=== PATIENT | female | born 1980 | race Caucasian/White ===

== ENCOUNTER 2016-12-29 09:35 | Emergency (ER) | payer OTHER ==
[~2016-12-29] VITALS: Ht 167.6 cm; Wt 75.5 kg
[~2016-12-29 09:35] MED LIST: ACET325T33 PO; ALPR0.5T PO; CIPR500T4 PO; FAMO-96 PO; GLYB5TAB3 PO; HYDR-3498 PO; LANT3I SC; LEVO75TA5 PO; Lisinopril PO; ONDA4TAB8 PO
[2016-12-29 09:47] VITALS: Ht 167.6 cm; Wt 75.5 kg
[2016-12-29 11:40] LABS: URINE BLOOD (Dip) POC Negative (NEGATIVE)
--- NOTE | 2016-12-29 11:47 | ERD ---
ER Documentation Chief Complaint Chief Complaint LOWER ABD PAIN AITH N/V/D HPI 36-year-old female, presents to the emergency department complaining of 4 days with diarrhea, which is described as liquid greenish, approximately 5 episodes per day. Associated with nausea and vomiting 2 yesterday. The patient refers subjective fever at home. No recent traveling, no suspicious fluid. The patient is also complaining of a lump in her vaginal area for the last 6 weeks, nonpainful, mobile. ROS SYSTEMIC symptoms: No fever, no chills, no night sweats EYE symptoms: No eyesight problems. OTOLARYNGEAL symptoms: No hearing loss. CARDIOVASCULAR symptoms: No chest pain or discomfort, no palpitations. PULMONARY symptoms: No dyspnea, no cough, no wheezing. GASTROINTESTINAL symptoms: No abdominal pain, (+) nausea, (+) vomiting SKIN no rashes MUSCULOSKELETAL symptoms: No arthralgias, no muscle aches. NEUROLOGY symptoms: No headache, no confusion, no syncope, no numbness or tingling. All systems reviewed and are negative except as per history of present illness. Medications Home Meds Active Scripts Ranitidine Hcl* (Zantac*) 150 Mg Tablet, 150 MG PO BID Y for abdominal pain, # 30 TAB Prov:GERARD OLVERA MD 12/29/16 Ciprofloxacin Hcl* (Ciprofloxacin Hcl*) 500 Mg Tablet, 250 MG PO BID for 3 Days , #6 TAB Prov:GERARD OLVERA MD 12/29/16 Famotidine* (Pepcid*) 20 Mg Tablet, 20 MG PO BID for 4 Days, TAB Prov:MARCEL MOON PA-C 01/23/15 Acetaminophen* (Tylenol*) 325 Mg Tablet, 2 TAB PO Q8 Y for PAIN AND OR ELEVATED TEMP, #20 TAB Prov:MARCEL MOON PA-C 01/23/15 Hydrocodone Bit-Acetaminophen* ([place]*) 5-325 Mg Tab, 1 TAB PO Q6 Y for PAIN, # 14 TAB Prov:JOSÉ MIGUEL GARCIA DO 12/08/14 Ondansetron Hcl* (Zofran*) 4 Mg Tablet, 4 MG PO Q8H Y for NAUSEA AND/OR VOMITING , #10 TAB Prov:JOSÉ MIGUEL GARCIA DO 10/4/15 Ciprofloxacin Hcl* (Ciprofloxacin Hcl*) 500 Mg Tablet, 500 MG PO BID for 10 Days , TAB Prov:JOSÉ MIGUEL GARCIA DO 12/08/14 [Lisinopril] 5 MG TAB No Conflict Check, 5 MG PO DAILY for 30 Days, TAB Do not Take if your systolic Blood pressure is less than 110 Prov:LINDA HARDEN 09/13/14 Reported Medications Alprazolam* (Xanax*) 0.5 Mg Tab, 0.5 MG PO DAILY NEEDED, TAB 03/18/14 Insulin Glargine* (Lantus*) 100 Unit/Ml Soln, 45 UNIT SC QPM, EA 03/18/14 Levothyroxine Sodium* (Levothyroxine Sodium*) 75 Mcg Tablet, 75 MCG PO DAILY, TAB 03/18/14 Glyburide* (Glyburide*) 5 Mg Tablet, 5 MG PO BID, TAB 03/18/14 Allergies Allergies: Coded Allergies: No Known Allergy (Unverified , 12/08/14) PMhx/Soc History of Surgery: Yes ( x2, hysterectomy) Anesthesia Reaction: No Hx Neurological Disorder: No Hx Respiratory Disorders: No Hx Cardiac Disorders: Yes (HTN) Hx Psychiatric Problems: No Hx Miscellaneous Medical Probl: Yes (diabetes, HTN, THYROID) Hx Alcohol Use: Yes (social) Hx Substance Use: Yes (MJ) Hx Tobacco Use: No Smoking Status: Never smoker Physical Exam Vitals Vital Signs Date Time Temp Pulse Resp B/P Pulse Ox O2 Delivery O2 Flow Rate FiO2 12/29/16 09:47 98.2 97 16 137/82 99 Physical Exam Patient alert oriented, well-hydrated in no distress. Neck: Full range of motion..~ No meningismus. Resp: Clear to auscultation bilaterally Cardio: Regular rate and rhythm, no murmurs Abd: Soft, non tender, non distended. Normal bowel sounds G.U: 1cm pedunculated hyperkeratotic lesion on right labia Results 24 hrs Laboratory Tests Test 12/29/16 11:38 Bedside Urine pH (LAB) 6.0 Bedside Urine Protein (LAB) 1+ Bedside Urine Glucose (UA) 0.50% Bedside Urine Ketones (LAB) Negative Bedside Urine Blood Negative Bedside Urine Nitrite (LAB) Negative Bedside Urine Leukocyte Esterase (L Negative Procedures/MDM 36-year-old female, presents with 5 days of diarrhea. Physical examination unremarkable, no suspicion for acute abdomen. Differential diagnosis includes gastroenteritis, viral/ bacterial, colitis, thyroid disease. The patient refers similar symptoms in the past and stated that the medication that worked for her was antibiotics therefore the patient is requesting a prescription for oral antibiotics. The patient was advised to follow-up with her primary doctor in 2-4 days and return to the hospital as needed for worsening or persistent pain Departure Diagnosis: Primary Impression: Gastroenteritis Additional Impression: Warts Condition: Stable Patient Instructions: Gastroenteritis, Bacterial (Child) (Adult) GERARD OLVERA MD Dec 29, 2016 11:47
[2016-12-29] MEDS ORDERED: CIPR500T4 PO (11:49)
[2016-12-29] MEDS ORDERED: RANI150T9 PO (11:49)
== END 2016-12-29 12:06 | disposition home or self-care (01) ==
LOC: FTE 09:35
DX: K52.9 Noninfective gastroenteritis and colitis, unspecified (principal); B07.9 Viral wart, unspecified; I10 Essential (primary) hypertension; E11.9 Type 2 diabetes mellitus without complications; Z79.4 Long term (current) use of insulin; Z79.84 Long term (current) use of oral hypoglycemic drugs
CPT/HCPCS: 81003; Z7502; 99283

== ENCOUNTER 2017-03-11 11:29 | Emergency (ER) | END 2017-03-11 17:25 | disposition home or self-care (01) ==

== ENCOUNTER 2017-09-21 12:35 | Emergency (ER) | END 2017-09-21 15:26 | disposition home or self-care (01) ==

== ENCOUNTER 2017-10-07 15:02 | Emergency (ER) | END 2017-10-07 18:34 | disposition home or self-care (01) ==

== ENCOUNTER 2017-11-09 20:20 | Emergency (ER) | END 2017-11-10 00:07 | disposition home or self-care (01) ==

== ENCOUNTER 2017-11-28 08:44 | Emergency (ER) | END 2017-11-28 12:09 | disposition home or self-care (01) ==

== ENCOUNTER 2017-12-22 08:11 | Emergency (ER) | END 2017-12-22 10:35 | disposition home or self-care (01) ==

== ENCOUNTER 2018-01-16 12:43 | Emergency (ER) | END 2018-01-16 15:15 | disposition home or self-care (01) ==

== ENCOUNTER 2018-05-02 11:18 | Emergency (ER) | payer OTHER ==
[~2018-05-02] VITALS: Ht 167.6 cm; Wt 75.9 kg
[~2018-05-02 11:18] MED LIST changes: -ACET325T33 PO; +ALPR2TAB PO; +BUTA1CAP41 PO; -CIPR500T4 PO; +DOCU-144 PO; +ESCI20TA PO; -FAMO-96 PO; -HYDR-3498 PO; +HYDR-3980 PO; +IBUP-1542 PO; +IBUP800T48 PO; -LANT3I SC; +LEVO50TA7 PO; -LEVO75TA5 PO; +LOSA50TA14 PO; -Lisinopril PO; +NAPR-985 PO; +ONDA4TAB14 PO; -ONDA4TAB8 PO
[2018-05-02 11:47] VITALS: PULSE 81; Ht 167.6 cm; Wt 75.9 kg
[2018-05-02] MEDS ORDERED: KETOROLAC 30 MG INJ IV STA (13:04)
[2018-05-02] MEDS ORDERED: SOD CHLORIDE 0.9% 500 ML IV STA (13:04)
--- NOTE | 2018-05-02 13:34 | ERD ---
ER Documentation Chief Complaint Chief Complaint painful urination x 4 days. pt noticed bloody urine starting yesterday HPI This is a 38-year-old female with a history of hypertension and diabetes mellitus who presents to ED with complaints of lower abdominal/pelvic pain that has been constant for the past 4 days. Patient rates pain at a 7 out of 10 and states that the pain is been worsening over the past 2 days. Patient admits to seeing blood in urine and states that the pain is radiating to bilateral low back, right greater than left. Patient also admits to fevers and nausea. Denies dysuria, increased frequency of urination, vomiting, hematemesis, hemoptysis, diarrhea, constipation, melena, hematochezia, vaginal pain, vaginal discharge and all other symptoms. no hx of kidney stones ROS All systems reviewed and are negative except as per history of present illness. Medications Home Meds Active Scripts Ibuprofen* (Motrin*) 600 Mg Tab, 600 MG PO Q6, #30 TAB Prov:CHRIS JARRETT PA-C 01/16/18 Docusate Sodium* (Colace*) 100 Mg Capsule, 100 MG PO TID, #30 CAP Prov:CHRIS JARRETT PA-C 01/16/18 Ibuprofen* (Motrin*) 600 Mg Tab, 600 MG PO Q6H PRN for PAIN AND OR ELEVATED TEMP, #30 TAB Prov:YANG CUELLAR NP 12/22/17 Naproxen* (Naprosyn*) 500 Mg Tablet, 500 MG PO BID PRN for PAIN AND/OR INFLAMM ATION, #30 TAB Prov:SHABBIR RESENDIZ PA-C 11/28/17 Ondansetron (Ondansetron Odt) 4 Mg Tab.rapdis, 4 MG PO Q6H PRN for NAUSEA AND/OR VOMITING, #10 TAB Prov:SHABBIR RESENDIZ PA-C 11/28/17 Ibuprofen* (Motrin*) 800 Mg Tab, 800 MG PO Q6H PRN for PAIN AND OR ELEVATED TEMP, #30 TAB Prov:AYDEE SANCHEZ DO 11/09/17 Hydrocodone/Acetaminophen ([place] 10-325 Tablet) 1 Each Tablet, 1 TAB PO Q6H PRN for PAIN, #7 TAB Prov:AYDEE SANCHEZ DO 11/09/17 Alprazolam* (Xanax*) 0.5 Mg Tab, 0.5 MG PO Q8H PRN for ANXIETY, #20 TAB Prov:AYDEE SANCHEZ DO 11/09/17 Reported Medications Kapntlewsn-Pzbhbneoasfme-Azdgssfw* (Zebutal*) 50-325-40 Mg Capsule, 1 CAP PO BID PRN for NEEDED, CAP 11/09/17 Escitalopram Oxalate* (Lexapro*) 20 Mg Tablet, 20 MG PO DAILY, #30 TAB 11/09/17 Losartan Potassium* (Losartan Potassium*) 50 Mg Tablet, 50 MG PO BID, TAB 11/09/17 Levothyroxine Sodium* (Levothyroxine Sodium*) 50 Mcg Tablet, 50 MCG PO BEFORE BREAKFAST, #30 TAB 11/09/17 Glyburide* (Glyburide*) 5 Mg Tablet, 5 MG PO BID, #60 TAB 11/09/17 Alprazolam* (Xanax*) 2 Mg Tablet, 2 MG PO Q12H PRN for ANXIETY, TAB 11/09/17 Allergies Allergies: Coded Allergies: No Known Allergy (Unverified , 05/02/18) PMhx/Soc History of Surgery: Yes (HYSTERECTOMY,TUBAL LIGATION,C SECTION X 2) Anesthesia Reaction: No Hx Neurological Disorder: Yes Hx Respiratory Disorders: No Hx Cardiac Disorders: Yes (HTN) Hx Psychiatric Problems: No Hx Miscellaneous Medical Probl: Yes (DM,hypothroidism) Hx Alcohol Use: Yes (SOCIALLY) Hx Substance Use: No Hx Tobacco Use: No Smoking Status: Never smoker FmHx Family History: No diabetes Physical Exam Vitals Vital Signs Date Temp Pulse Resp B/P (MAP) Pulse Ox O2 O2 Flow FiO2 Time Delivery Rate 05/02/18 99.0 81 18 162/86 99 11:47 (111) Physical Exam Physical Exam Vitals signs: Reviewed by me. General: Well developed, well nourished, in mild distress. Patient is awake and alert. Head: Normocephalic, atraumatic. Eyes: Normal conjunctiva, Pupils PERRLA, EOM intact grossly ENT: Pharynx is clear, Moist mucous membranes, external ears, nose and mouth normal Neck: Supple, no masses, lymphadenopathy or JVD Respiratory: Clear to auscultation bilaterally with no wheezing, rhonchi, rales, no distress Cardiovascular: RRR, no murmurs, rubs, or gallops Abdominal: Soft, nondistended, no peritoneal signs, no rigidity, no surgical abdomen, bowel sounds present all 4 quadrants, mild tenderness palpation in suprapubic region and right lower quadrant, Morgan sign negative, no rebound tenderness, nontender to palpation in all the quadrants : Deferred Back: No midline tenderness. right cva tenderness presents Neurologic: Alert and oriented, moving all extremities, normal speech, no focal weakness, no cerebellar signs. Normal mentation Skin: warm and dry, No rash Psych: Normal mood Result Diagram: 05/02/18 1329 05/02/18 1329 Results 24 hrs Laboratory Tests Test 05/02/18 13:22 05/02/18 13:29 05/02/18 13:36 Urine Color YELLOW Urine Clarity CLOUDY Urine pH 6.0 Urine Specific [place] 1.029 Urine Ketones NEGATIVE mg/dL Urine Nitrite NEGATIVE mg/dL Urine Bilirubin NEGATIVE mg/dL Urine Urobilinogen NEGATIVE mg/dL Urine Leukocyte Esterase 3+ Horacio/ul Urine Microscopic RBC 15 /HPF Urine Microscopic WBC 38 /HPF Urine Squamous Epithelial Cells MODERATE /HPF Urine Hemoglobin NEGATIVE mg/dL Urine Glucose 3+ mg/dL Urine Total Protein NEGATIVE mg/dl White Blood Count 7.2 10^3/ul Red Blood Count 4.80 10^6/ul Hemoglobin 13.8 g/dl Hematocrit 38.7 % Mean Corpuscular Volume 80.6 fl Mean Corpuscular Hemoglobin 28.8 pg Mean Corpuscular 35.7 g/dl Hemoglobin Concent Red Cell Distribution Width 11.9 % Platelet Count 258 10^3/UL Mean Platelet Volume 9.9 fl Immature Granulocytes % 0.300 % Neutrophils % 58.4 % Lymphocytes % 35.0 % Monocytes % 4.9 % Eosinophils % 1.1 % Basophils % 0.3 % Nucleated Red Blood Cells % 0.0 /100WBC Immature Granulocytes # 0.020 10^3/ul Neutrophils # 4.2 10^3/ul Lymphocytes # 2.5 10^3/ul Monocytes # 0.4 10^3/ul Eosinophils # 0.1 10^3/ul Basophils # 0.0 10^3/ul Nucleated Red Blood Cells # 0.0 10^3/ul Sodium Level 138 mmol/L Potassium Level 3.9 mmol/L Chloride Level 104 mmol/L Carbon Dioxide Level 24 mmol/L Anion Gap 10 Blood Urea Nitrogen 9 mg/dl Creatinine 0.44 mg/dl Est Glomerular Filtrat > 60 mL/min Rate mL/min Glucose Level 259 mg/dl Calcium Level 9.4 mg/dl Total Bilirubin 0.7 mg/dl Direct Bilirubin 0.00 mg/dl Indirect Bilirubin 0.7 mg/dl Aspartate Amino 18 IU/L Transf (AST/SGOT) Alanine 7 IU/L Aminotransferase (ALT/SGPT) Alkaline Phosphatase 87 IU/L Total Protein 7.5 g/dl Albumin 4.2 g/dl Globulin 3.30 g/dl Albumin/Globulin Ratio 1.27 Lipase 85 U/L POC Beta HCG, Qualitative NEGATIVE Current Medications Medications Dose Sig/Mac Start Time Status Last (Trade) Ordered Route PRN Stop Time Admin Dose Reason Admin Sodium 500 ml @ Q1H STAT 05/02/18 DC 05/02/18 Chloride 500 mls/hr IV 13:04 13:38 05/02/18 14:03 Ketorolac 30 mg ONCE STAT 05/02/18 DC 05/02/18 Tromethamine IV 13:04 13:39 (Toradol) 05/02/18 13:06 Procedures/MDM EKG, MONITORS, & DIAGNOSTIC IMAGING: [place] [id number] Radiology Main Line: [phone] DIAGNOSTIC IMAGING REPORT Patient: ABHAY PEREZ : 1980 Age: 38 Sex: F MR #: [id number] DOS: 05/02/18 1304 Ordering MD: DONTE HERNANDEZ PA-C Location: [facility] BEDS AT [facility] Room/Bed: PROCEDURE: CT abdomen and pelvis without contrast. CLINICAL INDICATION: Abdominal pain TECHNIQUE: Continues 2.5 mm axial images were obtained from the domes of the diaphragms to the inferior pubic rami. No oral or intravenous contrast was admi nistered. The calculated dose length product (DLP) = 809.87 mGy-cm. Exam CTDlvol = 14.53 mGy. One or more of the following dose reduction techniques were used: Automated exposure control, adjustment of the mA and or KV according to patient size, or use of iterative reconstruction technique. One or more of the following dose reduction techniques were used: Automated exposure control, adjustment of the mA and or KV according to patient size, or use of iterative reconstruction technique. DICOM images are available. COMPARISON: 09/21/2017 FINDINGS: Lung bases are clear. No pleural pericardial fluid is seen. Liver, gallbladder, pancreas, spleen, and adrenals are within normal limits. Evaluation of the genitourinary system again demonstrates nonobstructing bilateral intrarenal columba culi as follows: 2 mm right upper pole 2 mm left upper pole No ureteral calculi or hydronephrosis is seen. There is no perinephric fluid or stranding. Aorta is normal in caliber. No pathologically enlarged mesenteric lymph nodes seen. The stomach and small bowel loops are within normal limits. There is no small bowel dilatation or obstruction. No free fluid, free air, abscess is noted in the upper abdomen CT pelvis: Images through the pelvis demonstrate no free fluid, free air, abscess. Bladder is minimally distended, but grossly unremarkable. Uterus is surgically absent and/or atrophic. There is an 2.5 cm right adnexal cyst. Left adnexa is unremarkable. Evaluation of the colon demonstrates no diverticulosis, diverticulitis or acute colitis. Mild constipation is seen. Normal appendix and terminal ileum are identified. There are no pathologically enlarged iliac chain lymph nodes. No destructive bony lesions are seen. IMPRESSION: 1. Stable nonobstructing bilateral 2 mm intrarenal calculi. No hydronephrosis or perinephric stranding. 2. Normal appendix and terminal ileum. 3. 2.5 cm right adnexal cyst. If indicated this can be better evaluated with pelvic ultrasound. 4. Mild constipation RPTAT: HH .Spencer Cordova MD, Date Time Electronically viewed and signed by .Spencer Cordova MD, on 05/02/2018 14:02 .W/ CC: DONTE HERNANDEZ PA-C [phone] LAB INTERPRETATION: CBC shows no evidence of hemorrhage or infection Chemistry remarkable for an elevated glucose of 259, otherwise no serious electrolyte abnormality or evidence of renal dysfunction Liver function test shows no evidence of acute biliary or hepatic dysfunction Lipase shows no evidence of acute pancreatitis Urine negative Urinalysis remarkable for 3+ leukocyte esterase, microscopic RBC 15, microscopic WBC 38 ER COURSE: The patient was given IV normal saline and Toradol for pain The medication was well tolerated and the patient reports improvement in symptoms. The patient was stable throughout ED course. I kept the patient and/or family informed of laboratory and diagnostic imaging results throughout the emergency room course. The patient was promptly evaluated and a treatment plan was devised based on H&P and other data. This plan was discussed with the patient who agreed and had no further questions or concerns prior to discharge. MEDICAL DECISION MAKING: This is a 38-year-old female with a history of hypertension and diabetes mellitus who presents to ED with complaints of lower abdominal/pelvic pain with associated hematuria and radiation to low back times 4 days. Urinalysis is remarkable for 3+ leukocyte esterase, microscopic RBCs and microscopic WBCs. In addition to patient having nausea, fever and low back pain this is likely pyelonephritis. Patient was given 1 g of Rocephin in the emergency department and will be sent home with ciprofloxacin p.o. Patient's vitals are stable she can be managed close outpatient follow-up. There is no evidence of sepsis. No evidence of septic stone, obstructive pyelonephritis, ovarian torsion, tubo- ovarian abscess, ectopic , appendicitis, small bowel obstruction, perforated viscus or cholecystitis. Advised patient follow-up with primary care in the next 48 hours. Return to ED with any worsening symptoms DISPOSITION PLAN: We discussed follow up with the patient's primary care doctor within 24 to 48 hours. Patient counseled regarding my diagnostic impression and care plan. Prior to discharge all questions answered. Pt agrees with treatment plan and understands strict return precautions. Precautionary instructions provided including instructions to return to the ER if not improving or for any worsening or changing symptoms or concerns. SPECIALIST FOLLOW UP RECOMMENDED: None Patient has been advised to follow up with primary care in 1-2 days. Disclaimer: Inadvertent spelling and grammatical errors are likely due to EHR/dictation software use and do not reflect on the overall quality of patient care. Also, please note that the electronic time recorded on this note does not necessarily reflect the actual time of the patient encounter. Departure Diagnosis: Primary Impression: Acute pyelonephritis Condition: Stable Patient Instructions: Pyelonephritis, Female (Adult) Referrals: [facility] Additional Instructions: Patient advised to return to the ED immediately for new or worsening symptoms. Patient advised to follow up with primary care provider in the next 24-48 hours. Patient verbalized understanding and agrees with treatment plan and course of action. If patient has no primary care they may follow up with one of the community clinics listed on the following page or one of the options listed below [facility] + [address] [address] or [facility] [id number] [place] [id number] or [facility] [address] [place] [address] DONTE HERNANDEZ PA-C May 02, 2018 13:34
[2018-05-02] MEDS ORDERED: CEFTRIAXONE 1 GM/50 ML (PMX) 50 ML IVPB STA (14:14)
[2018-05-02] MEDS ORDERED: CIPR500T4 PO (14:23)
[2018-05-02] MEDS ORDERED: IBUP-1542 PO (14:23)
[2018-05-02] MEDS ORDERED: CEFTRIAXONE 1 GM INJ IM ONE (15:00)
[2018-05-02 15:17] VITALS: BP 162/90; RESP 18
== END 2018-05-02 15:18 | disposition home or self-care (01) ==
LOC: FTE 11:18
DX: N10 Acute pyelonephritis (principal); E11.9 Type 2 diabetes mellitus without complications; I10 Essential (primary) hypertension; E03.9 Hypothyroidism, unspecified; R10.2 Pelvic and perineal pain; Z79.84 Long term (current) use of oral hypoglycemic drugs
CPT/HCPCS: 36415; 74176; 80053; 81001; 81025; 83690; 85025; 96372; 96374; J0696; J1885; J7040; Z7502